=== PATIENT | male | born 1975 | race Caucasian/White ===

== ENCOUNTER 2021-12-22 19:15 | Inpatient (IN) | payer OTHER ==
[2021-12-22 19:54] LABS: #Lymphocytes 0.5 thou/uL (1.20-3.40); #Monocytes 0.8 thou/uL (0.11-0.59); #Neutrophils 15.7 thou/uL (1.40-6.50); %Basophils 0.1 % (0.0-1.0); %Eosinophils 0.1 % (0.0-10.0); %Lymphocytes 2.9 % (21.0-51.0); %Monocytes 4.8 % (0.0-10.0); %Neutrophils 92.1 % (42.0-75.0); Hemoglobin 9.7 g/dL (14.0-18.0); Mean Corpuscular HGB CONC 36.5 g/dL (32.0-36.0); Mean Corpuscular Hemoglobin 32.2 pg (27.0-31.0); Mean Corpuscular Volume 88.4 fL (78.0-98.0); Mean Platelet Volume 6.3 fL (7.4-10.4); Platelet Count 345 thou/uL (130-400); RBC Distribution Width 10.3 % (11.5-14.5)
[2021-12-22 19:55] LABS: Actual Bicarbonate (HCO3a) 32.1 mEq/L (22-28); Analyzer IN Cardio ER; Base Excess (BEa) 10.9 mEq/L (-2.0 to +3.0); CO2 Tension 29.8 mmHg (35.0-45.0); Calcium, Ionized (arterial) 0.69 mmol/L (1.12-1.30); Carboxyhemoglobin (COHb) 0.2 gm% (0.0-3.0); Hemoglobin (Hb) 9.1 g/dL (14.0-18.0); O2 Tension (PaO2), arterial 346.6 mmHg (80.0-100.0); Potassium - ABG Lab 1.33 mmol/L (3.70-5.30)
[2021-12-22 20:02] LABS: Bacteria/HPF None Seen HPF (None Seen); Bilirubin Negative (Negative); Blood, Urine 2+ (Negative); Clarity Clear (Clear); Glucose, Urine (Dipstick) Normal (Negative); Ketone, Urine Trace mg/dL (Negative); Leukocyte 500 Leu/uL (Negative); Nitrite Negative (Negative); Protein, Urine (Dipstick) 10 mg/dL (Neg-Trace); RBC/HPF 0-3 HPF (0-3); Specific Gravity, Urine 1.006 (1.002-1.036); Squamous Epithelial None Seen HPF (0-3); Urobilinogen Normal mg/dL (Less than 2); WBC/HPF 21-50 HPF (0-3)
[2021-12-22 20:07] LABS: Sperm/HPF Rare HPF (None Seen)
[2021-12-22 20:10] LABS: pH, Arterial 7.65 (7.35-7.45)
[2021-12-22 20:11] LABS: Puncture Site LBA
[2021-12-22 20:15] LABS: ALT (SGPT) 13 U/L (8-55); AST (SGOT) 46 U/L (5-34); Albumin 3.1 g/dL (3.5-5.0); Alcohol Less than 10 mg/dL (Less than 10); Alkaline Phosphatase 76 U/L (40-110); BUN (Urea Nitrogen) 12 mg/dL (8.9-20.6); Bilirubin, Total 1.5 mg/dL (0.2-1.2); Calc. Creatinine Clearance 0 mL/min (70-130); Calcium 6.9 mg/dL (7.8-10.44); Carbon Dioxide 33 mmol/L (22-29); Estimated GFR 63; Globulin 3.2 g/dL (2.4-3.5); Glucose 146 mg/dL (70-105); Protein, Total 6.3 g/dL (6.0-8.3)
[2021-12-22] MEDS ORDERED: Fentanyl CADD 100 ML IV SCH ×2 (20:15→21:00)
[2021-12-22] MEDS ORDERED: Lidocaine 1% w/Epinephrine 1:100K 20 ML VIAL ONE (20:15)
[2021-12-22 20:32] LABS: Potassium 1.4 mmol/L (3.5-5.1); Sodium 105 mmol/L (136-145)
[2021-12-22 20:33] LABS: Amphetamine Not Detected (NotDetected); Barbiturates Screen Not Detected (NotDetected); Benzodiazepine Screen Not Detected (NotDetected); Cocaine Metabolite Screen Not Detected (NotDetected); Methadone Not Detected (NotDetected); Methamphetamine Not Detected (NotDetected); Opiate Screen Not Detected (NotDetected); Oxycodone Screen Not Detected (NotDetected); Phencyclidine (PCP) Not Detected (NotDetected); THC/Cannabinoid Screen Not Detected (NotDetected); Tricyclic Screen Not Detected (NotDetected)
[2021-12-22 20:35] LABS: Chloride Less than 65 mmol/L (98-107)
[2021-12-22 20:45] LABS: Acetaminophen Less than 10.0 mcg/mL (10.0-30.0); Alcohol Less than 10 mg/dL (Less than 10); Salicylate Less than 8.0 mg/dL (15.0-30.0)
[2021-12-22] MEDS ORDERED: fentaNYL Citrate/PF 2,000 MCG in Sodium Chloride 0.9% 60 ML IV PRN (20:49)
[2021-12-22] MEDS ORDERED: HumaLOG 300 UNITS/3 ML VIAL SC PRN (20:54)
[2021-12-22] MEDS ORDERED: Ondansetron PF 4 MG/2 ML Vial IVP PRN (20:54)
[2021-12-22] MEDS ORDERED: Dextrose 5% in Water 1,000 ML IV PRN (20:54)
[2021-12-22] MEDS ORDERED: hydrALAZINE 20 MG/ML VIAL SLOW IVP PRN (20:54)
[2021-12-22] MEDS ORDERED: Promethazine HCl 25 MG/ML VIAL IM PRN (20:54)
[2021-12-22] MEDS ORDERED: Dextrose 50% Abboject 50 ML SYRINGE SLOW IVP PRN (20:54)
[2021-12-22] MEDS ORDERED: Sodium Chloride 0.9% 1,000 ML IV SCH (21:00)
[2021-12-22] MEDS ORDERED: Dexmedetomidine In 0.9 % NaCl 100 ML IVPB SCH (21:00)
[2021-12-22] MEDS ORDERED: levETIRAcetam 500 MG/5 ML VIAL ONE (21:07)
[2021-12-22 21:12] LABS: SARS-CoV-2 NAA Rapid Test Not Detected (NotDetected)
[2021-12-22] MEDS ORDERED: Calcium Chloride 1 GM/10 ML Abboject SYRINGE IVP SCH ×2 (21:15→22:15)
[2021-12-22] MEDS ORDERED: Sodium Chloride 3% 500 ML IVPB SCH (21:15)
[2021-12-22 21:37] LABS: INR-International Normal Ratio 1.3; Prothrombin Time 16.3 sec (12.0-14.7)
[2021-12-22 21:38] LABS: PTT 33.3 sec (22.9-36.1)
[2021-12-22 21:44] LABS: Hemoglobin 9.7 g/dL (14.0-18.0); Mean Corpuscular HGB CONC 35.7 g/dL (32.0-36.0); Mean Corpuscular Hemoglobin 31.5 pg (27.0-31.0); Mean Corpuscular Volume 88.1 fL (78.0-98.0); Mean Platelet Volume 6.1 fL (7.4-10.4); Platelet Count 292 thou/uL (130-400); RBC Distribution Width 10.8 % (11.5-14.5); Red Blood Cell (RBC) Count 3.07 mill/uL (4.70-6.10); White Blood Cell (WBC) Count 21.8 thou/uL (4.8-10.8)
[2021-12-22 21:53] LABS: Hemoglobin A1c 5.4 % (4.0-6.0)
[2021-12-22] MEDS ORDERED: Potassium Chloride 20 MEQ TAB PO SCH (22:00)
[2021-12-22 22:01] LABS: Band 9 % (5-11); MDiff Complete? YES; Monocytes 7 % (0-10); Neutrophil 84 % (42-75); Vacuoles SLIGHT
[2021-12-22 22:06] LABS: BUN (Urea Nitrogen) 13 mg/dL (8.9-20.6); Calc. Creatinine Clearance 0 mL/min (70-130); Calcium 6.3 mg/dL (7.8-10.44); Carbon Dioxide 33 mmol/L (22-29); Estimated GFR 71; Glucose 161 mg/dL (70-105)
[2021-12-22 22:25] LABS: Magnesium 0.8 mg/dL (1.6-2.6); Phosphorus 1.6 mg/dL (2.3-4.7); Potassium 1.3 mmol/L (3.5-5.1); Sodium 107 mmol/L (136-145)
[2021-12-22] MEDS: levETIRAcetam 500 MG/5 ML VIAL SLOW IVP SCH (22:45)
[2021-12-22] MEDS ORDERED: Magnesium Sulfate 3 GM in Sodium Chloride 0.9% 100 ML IVPB SCH (22:45)
[2021-12-22 22:58] LABS: Chloride Less than 65 mmol/L (98-107)
[2021-12-22] MEDS: Potassium Chloride 20 MEQ in Premix Bag 1 BAG IVPB SCH (23:01)
[2021-12-22] MEDS: Magnesium 2 GM/50 ML(in water) 3 GM in Premix Bag 1 BAG IVPB SCH ×2 (23:05→23:17)
[2021-12-22 23:12] LABS: Sodium 107 mmol/L (136-145)
[2021-12-23] MEDS: Potassium Chloride 20 MEQ in Premix Bag 1 BAG IVPB SCH ×8 (01:05→21:42)
[2021-12-23 02:17] LABS: Potassium 1.5 mmol/L (3.5-5.1)
[2021-12-23] MEDS ORDERED: Sodium Chloride 0.9% 1,000 ML IV SCH (04:15)
[2021-12-23 04:22] LABS: #Lymphocytes 0.7 thou/uL (1.20-3.40); #Monocytes 1.1 thou/uL (0.11-0.59); #Neutrophils 16.7 thou/uL (1.40-6.50); %Basophils 0.1 % (0.0-1.0); %Eosinophils 0.1 % (0.0-10.0); %Lymphocytes 3.9 % (21.0-51.0); %Monocytes 5.8 % (0.0-10.0); %Neutrophils 90.1 % (42.0-75.0); Hemoglobin 7.7 g/dL (14.0-18.0); Mean Corpuscular HGB CONC 36.6 g/dL (32.0-36.0); Mean Corpuscular Hemoglobin 31.9 pg (27.0-31.0); Mean Corpuscular Volume 87.2 fL (78.0-98.0); Mean Platelet Volume 6.5 fL (7.4-10.4); Platelet Count 215 thou/uL (130-400); RBC Distribution Width 10.8 % (11.5-14.5); Red Blood Cell (RBC) Count 2.41 mill/uL (4.70-6.10); White Blood Cell (WBC) Count 18.6 thou/uL (4.8-10.8)
[2021-12-23 04:27] LABS: Anion Gap 13 mmol/L (10-20); BUN (Urea Nitrogen) 13 mg/dL (8.9-20.6); Calc. Creatinine Clearance 89 mL/min (70-130); Calcium 7.5 mg/dL (7.8-10.44); Carbon Dioxide 32 mmol/L (22-29); Chloride 69 mmol/L (98-107); Estimated GFR 68; Glucose 116 mg/dL (70-105); Magnesium 1.7 mg/dL (1.6-2.6); Phosphorus 2.8 mg/dL (2.3-4.7); Potassium 1.6 mmol/L (3.5-5.1); Sodium 112 mmol/L (136-145)
[2021-12-23] MEDS ORDERED: Potassium Chloride 20 MEQ TAB PO SCH (04:30)
[2021-12-23] MEDS ORDERED: Magnesium 2 GM/50 ML(in water) 3 GM in Premix Bag 1 BAG IVPB SCH ×2 (04:45→20:15)
[2021-12-23] MEDS ORDERED: Magnesium Sulfate 3 GM in Sodium Chloride 0.9% 100 ML IVPB SCH ×2 (05:00→20:15)
[2021-12-23] MEDS ORDERED: Sodium Chloride 3% 500 ML IVPB SCH (05:15)
[2021-12-23] MEDS ORDERED: Hydrocortisone Sod Succ/PF 100 mg/2 ml Vial IVP SCH (07:45)
[2021-12-23] MEDS: levETIRAcetam 500 MG/5 ML VIAL SLOW IVP SCH ×2 (08:02→20:07)
[2021-12-23 08:09] LABS: Anion Gap 11 mmol/L (10-20); BUN (Urea Nitrogen) 12 mg/dL (8.9-20.6); Calc. Creatinine Clearance 94 mL/min (70-130); Calcium 7.3 mg/dL (7.8-10.44); Carbon Dioxide 32 mmol/L (22-29); Chloride 78 mmol/L (98-107); Estimated GFR 71; Glucose 105 mg/dL (70-105)
[2021-12-23 08:12] LABS: Sodium 119 mmol/L (136-145)
[2021-12-23 08:58] LABS: Actual Bicarbonate (HCO3a) 32.4 mEq/L (22-28); Base Excess (BEa) 8.8 mEq/L (-2.0 to +3.0); CO2 Tension 40.8 mmHg (35.0-45.0); Calcium, Ionized (arterial) 0.96 mmol/L (1.12-1.30); Carboxyhemoglobin (COHb) 0.1 gm% (0.0-3.0); Hemoglobin (Hb) 7.9 g/dL (14.0-18.0); O2 Tension (PaO2), arterial 93.8 mmHg (80.0-100.0); Potassium - ABG Lab 1.79 mmol/L (3.70-5.30); pH, Arterial 7.52 (7.35-7.45)
[2021-12-23 08:59] LABS: Puncture Site RBA
[2021-12-23] MEDS ORDERED: levETIRAcetam in NS 500 MG in Premix Bag 1 BAG IVPB SCH (09:00)
[2021-12-23] MEDS: Sodium Chloride 0.9% 1,000 ML IV SCH ×2 (09:55→16:37)
[2021-12-23] MEDS: Hydrocortisone Sod Succ/PF 100 mg/2 ml Vial IVP SCH ×2 (10:16→17:19)
[2021-12-23 11:10] LABS: Sodium 121 mmol/L (136-145)
[2021-12-23 13:35] LABS: Anion Gap 12 mmol/L (10-20); BUN (Urea Nitrogen) 12 mg/dL (8.9-20.6); Calc. Creatinine Clearance 101 mL/min (70-130); Calcium 7.6 mg/dL (7.8-10.44); Carbon Dioxide 30 mmol/L (22-29); Chloride 82 mmol/L (98-107); Estimated GFR 77; Glucose 124 mg/dL (70-105); Sodium 122 mmol/L (136-145)
[2021-12-23 13:45] LABS: Potassium 2.1 mmol/L (3.5-5.1)
[2021-12-23 15:36] LABS: Sodium 125 mmol/L (136-145)
[2021-12-23] MEDS ORDERED: Potassium Chloride 40 MEQ in Premix Bag 1 BAG IVPB SCH (16:00)
[2021-12-23 18:45] LABS: Anion Gap 12 mmol/L (10-20); BUN (Urea Nitrogen) 10 mg/dL (8.9-20.6); Calc. Creatinine Clearance 101 mL/min (70-130); Calcium 7.6 mg/dL (7.8-10.44); Carbon Dioxide 31 mmol/L (22-29); Chloride 87 mmol/L (98-107); Estimated GFR 77; Glucose 136 mg/dL (70-105); Sodium 128 mmol/L (136-145)
[2021-12-23 18:47] LABS: Potassium 2.2 mmol/L (3.5-5.1)
[2021-12-23 19:35] LABS: Phosphorus 1.9 mg/dL (2.3-4.7)
[2021-12-23] MEDS ORDERED: Potassium Phosphate 30 MMOL in Sodium Chloride 0.9% 250 ML 250 ML IVPB SCH (20:15)
[2021-12-23] MEDS ORDERED: Dextrose 5 %-0.45 % NaCl 1,000 ML IV SCH ×3 (21:15→23:15)
[2021-12-23 22:35] LABS: Magnesium 2.8 mg/dL (1.6-2.6)
[2021-12-23 22:43] LABS: Anion Gap 12 mmol/L (10-20); Calc. Creatinine Clearance 104 mL/min (70-130); Calcium 7.5 mg/dL (7.8-10.44); Carbon Dioxide 33 mmol/L (22-29); Chloride 86 mmol/L (98-107); Estimated GFR 80; Glucose 170 mg/dL (70-105); Sodium 129 mmol/L (136-145)
[2021-12-23 23:10] LABS: Potassium 1.9 mmol/L (3.5-5.1)
[2021-12-24] MEDS: Potassium Chloride 20 MEQ in Premix Bag 1 BAG IVPB SCH ×5 (00:06→08:03)
[2021-12-24 00:16] LABS: BUN (Urea Nitrogen) 10 mg/dL (8.9-20.6)
[2021-12-24] MEDS: Hydrocortisone Sod Succ/PF 100 mg/2 ml Vial IVP SCH ×3 (01:38→17:21)
[2021-12-24 02:51] LABS: Anion Gap 15 mmol/L (10-20); BUN (Urea Nitrogen) 9 mg/dL (8.9-20.6); Calc. Creatinine Clearance 107 mL/min (70-130); Calcium 7.6 mg/dL (7.8-10.44); Carbon Dioxide 30 mmol/L (22-29); Chloride 87 mmol/L (98-107); Estimated GFR 83; Glucose 168 mg/dL (70-105); Sodium 130 mmol/L (136-145)
[2021-12-24] MEDS ORDERED: Dextrose 5% in Water 1,000 ML IV SCH ×2 (03:15→03:16)
[2021-12-24] MEDS ORDERED: Potassium Chloride 20 MEQ in Premix Bag 1 BAG IVPB SCH (05:00)
[2021-12-24] MEDS ORDERED: Lactated Ringer's 1,000 ML IV SCH (05:00)
[2021-12-24] MEDS: Sodium Chloride 0.9% 1,000 ML IV SCH (05:52)
[2021-12-24 06:30] LABS: Anion Gap 12 mmol/L (10-20); BUN (Urea Nitrogen) 9 mg/dL (8.9-20.6); Calc. Creatinine Clearance 112 mL/min (70-130); Calcium 7.4 mg/dL (7.8-10.44); Carbon Dioxide 32 mmol/L (22-29); Chloride 87 mmol/L (98-107); Estimated GFR 93; Glucose 147 mg/dL (70-105); Magnesium 1.9 mg/dL (1.6-2.6); Phosphorus 2.1 mg/dL (2.3-4.7); Sodium 129 mmol/L (136-145)
[2021-12-24 06:34] LABS: Hemoglobin 8.4 g/dL (14.0-18.0); Mean Corpuscular HGB CONC 35.1 g/dL (32.0-36.0); Mean Corpuscular Volume 88.2 fL (78.0-98.0); Mean Platelet Volume 6.2 fL (7.4-10.4); Platelet Count 209 thou/uL (130-400); RBC Distribution Width 11.3 % (11.5-14.5); Red Blood Cell (RBC) Count 2.72 mill/uL (4.70-6.10); White Blood Cell (WBC) Count 20.2 thou/uL (4.8-10.8)
[2021-12-24 06:48] LABS: Potassium 2.2 mmol/L (3.5-5.1)
[2021-12-24] MEDS ORDERED: D5 LR w/20 mEq KCL 1,000 ML IV SCH (07:15)
[2021-12-24] MEDS ORDERED: Potassium Phosphate 30 MMOL in Sodium Chloride 0.9% 250 ML 250 ML IVPB SCH (07:30)
[2021-12-24 08:11] LABS: Band 16 % (5-11); Lymphocytes 2 % (21-51); MDiff Complete? YES; Neutrophil 81 % (42-75); Platelet Morphology Comment Appears Adequate; Polychromasia SLIGHT = 2-3 cells (100X) (0-2/hpf); Reactive Lymphocytes 1 % (0-10)
[2021-12-24] MEDS ORDERED: Sodium Chloride 0.9% (PF) 10 ML VIAL FS PRN (08:15)
[2021-12-24] MEDS: Acetaminophen 500 MG TAB PO SCH ×3 (08:21→20:00)
[2021-12-24] MEDS: Ascorbic Acid 500 mg Chewable Tablet PO SCH ×2 (08:28→20:00)
[2021-12-24] MEDS: Pantoprazole 40 MG VIAL IVP SCH (08:28)
[2021-12-24] MEDS: Enoxaparin Sodium 40 MG/0.4 ML SYRINGE SC SCH (08:29)
[2021-12-24] MEDS: Ferrous Sulfate 325 MG TAB PO SCH ×2 (08:29→17:20)
[2021-12-24] MEDS: levETIRAcetam 500 MG/5 ML VIAL SLOW IVP SCH ×2 (08:31→20:01)
[2021-12-24] MEDS ORDERED: SODIUM CHLORIDE 0.9% IVPB SCH (10:00)
[2021-12-24] MEDS ORDERED: POTASSIUM CHLORIDE IVPB SCH (10:00)
[2021-12-24 11:39] LABS: Anion Gap 15 mmol/L (10-20); BUN (Urea Nitrogen) 7 mg/dL (8.9-20.6); Calc. Creatinine Clearance 116 mL/min (70-130); Calcium 7.3 mg/dL (7.8-10.44); Carbon Dioxide 30 mmol/L (22-29); Chloride 86 mmol/L (98-107); Estimated GFR 96; Glucose 138 mg/dL (70-105); Magnesium 1.7 mg/dL (1.6-2.6); Potassium 2.4 mmol/L (3.5-5.1); Sodium 129 mmol/L (136-145)
[2021-12-24] MEDS ORDERED: Magnesium 2 GM/50 ML(in water) 3 GM in Premix Bag 1 BAG IVPB SCH (14:00)
[2021-12-24] MEDS ORDERED: Magnesium Sulfate 3 GM in Sodium Chloride 0.9% 100 ML IVPB SCH (14:15)
[2021-12-24] MEDS: Potassium Chloride 20 MEQ in Lactated Ringer's 1,000 ML IV SCH ×2 (15:13→22:56)
[2021-12-24 15:30] LABS: Anion Gap 15 mmol/L (10-20); BUN (Urea Nitrogen) 6 mg/dL (8.9-20.6); Calc. Creatinine Clearance 112 mL/min (70-130); Calcium 6.9 mg/dL (7.8-10.44); Carbon Dioxide 29 mmol/L (22-29); Chloride 89 mmol/L (98-107); Estimated GFR 93; Glucose 165 mg/dL (70-105); Sodium 130 mmol/L (136-145)
[2021-12-24 15:42] LABS: Potassium 2.8 mmol/L (3.5-5.1)
[2021-12-24] MEDS: Potassium Chloride 40 MEQ in Premix Bag 1 BAG IVPB SCH ×3 (17:20→22:09)
[2021-12-24 21:12] LABS: Anion Gap 15 mmol/L (10-20); BUN (Urea Nitrogen) 6 mg/dL (8.9-20.6); Calc. Creatinine Clearance 122 mL/min (70-130); Calcium 6.7 mg/dL (7.8-10.44); Carbon Dioxide 29 mmol/L (22-29); Chloride 88 mmol/L (98-107); Estimated GFR 103; Glucose 158 mg/dL (70-105); Magnesium 1.9 mg/dL (1.6-2.6); Phosphorus 2.3 mg/dL (2.3-4.7); Sodium 129 mmol/L (136-145)
[2021-12-24] MEDS: Calcium Chloride 13.6 MEQ in Sodium Chloride 0.9% 100 ML IVPB SCH ×2 (22:07→22:57)
[2021-12-25] MEDS: Acetaminophen 500 MG TAB PO SCH ×4 (00:21→21:10)
[2021-12-25 02:13] LABS: #Lymphocytes 0.7 thou/uL (1.20-3.40); #Monocytes 0.6 thou/uL (0.11-0.59); %Basophils 0.1 % (0.0-1.0); %Eosinophils 0.1 % (0.0-10.0); %Lymphocytes 3.9 % (21.0-51.0); %Monocytes 3.4 % (0.0-10.0); %Neutrophils 92.5 % (42.0-75.0); Hemoglobin 7.2 g/dL (14.0-18.0); Mean Corpuscular HGB CONC 35.4 g/dL (32.0-36.0); Mean Corpuscular Hemoglobin 32.1 pg (27.0-31.0); Mean Corpuscular Volume 90.7 fL (78.0-98.0); Mean Platelet Volume 6.4 fL (7.4-10.4); Platelet Count 198 thou/uL (130-400); RBC Distribution Width 11.5 % (11.5-14.5); Red Blood Cell (RBC) Count 2.25 mill/uL (4.70-6.10); White Blood Cell (WBC) Count 17.2 thou/uL (4.8-10.8)
[2021-12-25] MEDS ORDERED: Potassium Chloride 30 MEQ in Sodium Chloride 0.9% 1,000 ML IV SCH (02:15)
[2021-12-25] MEDS: Hydrocortisone Sod Succ/PF 100 mg/2 ml Vial IVP SCH ×3 (02:29→17:46)
[2021-12-25] MEDS: Potassium Chloride 40 MEQ in Premix Bag 1 BAG IVPB SCH (02:29)
[2021-12-25 02:53] LABS: Anion Gap 11 mmol/L (10-20); BUN (Urea Nitrogen) 6 mg/dL (8.9-20.6); Calc. Creatinine Clearance 127 mL/min (70-130); Calcium 7.9 mg/dL (7.8-10.44); Carbon Dioxide 30 mmol/L (22-29); Chloride 89 mmol/L (98-107); Estimated GFR 107; Glucose 119 mg/dL (70-105); Magnesium 1.5 mg/dL (1.6-2.6); Phosphorus 2.6 mg/dL (2.3-4.7); Potassium 3.4 mmol/L (3.5-5.1); Sodium 127 mmol/L (136-145)
[2021-12-25] MEDS ORDERED: Potassium Chloride 20 MEQ TAB PO SCH (06:30)
[2021-12-25 06:48] LABS: Anion Gap 13 mmol/L (10-20); BUN (Urea Nitrogen) 5 mg/dL (8.9-20.6); Calc. Creatinine Clearance 122 mL/min (70-130); Calcium 7.6 mg/dL (7.8-10.44); Carbon Dioxide 30 mmol/L (22-29); Chloride 90 mmol/L (98-107); Estimated GFR 99; Glucose 125 mg/dL (70-105); Potassium 3.6 mmol/L (3.5-5.1); Sodium 129 mmol/L (136-145)
[2021-12-25] MEDS ORDERED: Magnesium Sulfate In Water 4 GM in Premix Bag 1 BAG IVPB SCH (07:00)
[2021-12-25] MEDS: Sodium Chloride 1 GM TAB PO SCH ×3 (07:03→17:46)
[2021-12-25] MEDS: Sodium Chloride 0.9% 1,000 ML IV SCH ×2 (07:03→17:21)
[2021-12-25] MEDS: Potassium Chloride 20 MEQ in Premix Bag 1 BAG IVPB SCH ×2 (09:22→11:55)
[2021-12-25] MEDS: Ferrous Sulfate 325 MG TAB PO SCH ×2 (09:23→17:46)
[2021-12-25] MEDS: Enoxaparin Sodium 40 MG/0.4 ML SYRINGE SC SCH (09:23)
[2021-12-25] MEDS: levETIRAcetam 500 MG TAB PO SCH ×2 (09:23→21:10)
[2021-12-25] MEDS: Pantoprazole 40 MG VIAL IVP SCH (09:23)
[2021-12-25] MEDS: Ascorbic Acid 500 mg Chewable Tablet PO SCH ×2 (09:23→21:10)
[2021-12-25 17:43] LABS: #Lymphocytes 0.9 thou/uL (1.20-3.40); #Monocytes 0.8 thou/uL (0.11-0.59); #Neutrophils 15.5 thou/uL (1.40-6.50); %Eosinophils 0.2 % (0.0-10.0); %Monocytes 4.4 % (0.0-10.0); %Neutrophils 90.4 % (42.0-75.0); Hemoglobin 7.6 g/dL (14.0-18.0); Mean Corpuscular HGB CONC 34.3 g/dL (32.0-36.0); Mean Corpuscular Hemoglobin 31.9 pg (27.0-31.0); Mean Corpuscular Volume 93.1 fL (78.0-98.0); Mean Platelet Volume 6.4 fL (7.4-10.4); Platelet Count 229 thou/uL (130-400); RBC Distribution Width 11.6 % (11.5-14.5); Red Blood Cell (RBC) Count 2.39 mill/uL (4.70-6.10); White Blood Cell (WBC) Count 17.1 thou/uL (4.8-10.8)
[2021-12-25 18:02] LABS: Anion Gap 13 mmol/L (10-20); BUN (Urea Nitrogen) 7 mg/dL (8.9-20.6); Calc. Creatinine Clearance 122 mL/min (70-130); Calcium 7.3 mg/dL (7.8-10.44); Carbon Dioxide 30 mmol/L (22-29); Chloride 91 mmol/L (98-107); Estimated GFR 99; Glucose 120 mg/dL (70-105); Magnesium 1.8 mg/dL (1.6-2.6); Phosphorus 2.2 mg/dL (2.3-4.7); Potassium 3.6 mmol/L (3.5-5.1); Sodium 130 mmol/L (136-145)
[2021-12-25] MEDS ORDERED: Potassium Phosphate 30 MMOL in Sodium Chloride 0.9% 250 ML 250 ML IVPB SCH (20:30)
[2021-12-25] MEDS ORDERED: Magnesium Sulfate 3 GM in Sodium Chloride 0.9% 100 ML IVPB SCH (20:30)
[2021-12-25] MEDS: Metoprolol Tartrate 25 MG TAB PO SCH (21:38)
[2021-12-26] MEDS: Acetaminophen 500 MG TAB PO SCH ×4 (00:29→20:54)
[2021-12-26] MEDS: Sodium Chloride 1 GM TAB PO SCH ×4 (00:29→16:51)
[2021-12-26 01:18] LABS: Sodium 131 mmol/L (136-145)
[2021-12-26 04:44] LABS: #Eosinphils 0.1 thou/uL (0.0-0.7); #Lymphocytes 1.5 thou/uL (1.20-3.40); #Monocytes 0.8 thou/uL (0.11-0.59); #Neutrophils 10.7 thou/uL (1.40-6.50); %Eosinophils 0.7 % (0.0-10.0); %Lymphocytes 11.5 % (21.0-51.0); %Monocytes 6.3 % (0.0-10.0); %Neutrophils 81.4 % (42.0-75.0); Hemoglobin 7.1 g/dL (14.0-18.0); Mean Corpuscular HGB CONC 34.9 g/dL (32.0-36.0); Mean Corpuscular Hemoglobin 32.1 pg (27.0-31.0); Mean Platelet Volume 6.5 fL (7.4-10.4); Platelet Count 248 thou/uL (130-400); RBC Distribution Width 11.4 % (11.5-14.5); Red Blood Cell (RBC) Count 2.22 mill/uL (4.70-6.10); White Blood Cell (WBC) Count 13.2 thou/uL (4.8-10.8)
[2021-12-26 05:18] LABS: Anion Gap 12 mmol/L (10-20); BUN (Urea Nitrogen) 8 mg/dL (8.9-20.6); Calc. Creatinine Clearance 156 mL/min (70-130); Calcium 6.8 mg/dL (7.8-10.44); Carbon Dioxide 33 mmol/L (22-29); Chloride 90 mmol/L (98-107); Estimated GFR 113; Glucose 90 mg/dL (70-105); Magnesium 1.7 mg/dL (1.6-2.6); Potassium 2.9 mmol/L (3.5-5.1); Sodium 132 mmol/L (136-145)
[2021-12-26] MEDS: Potassium Chloride 20 MEQ in Premix Bag 1 BAG IVPB SCH ×6 (06:12→22:20)
[2021-12-26] MEDS: Ferrous Sulfate 325 MG TAB PO SCH ×2 (08:10→16:50)
[2021-12-26] MEDS: Pantoprazole 40 MG VIAL IVP SCH (08:10)
[2021-12-26] MEDS: levETIRAcetam 500 MG TAB PO SCH ×2 (08:11→20:54)
[2021-12-26] MEDS: Metoprolol Tartrate 25 MG TAB PO SCH (08:11)
[2021-12-26] MEDS: Ascorbic Acid 500 mg Chewable Tablet PO SCH ×2 (08:11→20:54)
[2021-12-26] MEDS: Enoxaparin Sodium 40 MG/0.4 ML SYRINGE SC SCH (08:11)
[2021-12-26] MEDS: Atorvastatin Calcium 40 MG TAB PO SCH (08:11)
[2021-12-26] MEDS ORDERED: Potassium Chloride 20 MEQ TAB PO SCH ×2 (11:15→21:45)
[2021-12-26 12:11] LABS: Anion Gap 13 mmol/L (10-20); BUN (Urea Nitrogen) 9 mg/dL (8.9-20.6); Calc. Creatinine Clearance 153 mL/min (70-130); Calcium 6.6 mg/dL (7.8-10.44); Carbon Dioxide 32 mmol/L (22-29); Chloride 89 mmol/L (98-107); Estimated GFR 113; Glucose 89 mg/dL (70-105); Magnesium 1.3 mg/dL (1.6-2.6); Phosphorus 2.7 mg/dL (2.3-4.7); Potassium 3.5 mmol/L (3.5-5.1); Sodium 130 mmol/L (136-145)
[2021-12-26] MEDS ORDERED: Potassium Chloride 40 MEQ in Premix Bag 1 BAG IVPB SCH (12:45)
[2021-12-26] MEDS ORDERED: Magnesium Sulfate In Water 4 GM in Premix Bag 1 BAG IVPB SCH (13:00)
[2021-12-26 15:26] VITALS: BP 117/74
[2021-12-26] MEDS: Desmopressin 0.2 mg Tablet PO SCH (20:53)
[2021-12-26 20:56] LABS: Anion Gap 13 mmol/L (10-20); BUN (Urea Nitrogen) 9 mg/dL (8.9-20.6); Calc. Creatinine Clearance 151 mL/min (70-130); Calcium 6.6 mg/dL (7.8-10.44); Carbon Dioxide 31 mmol/L (22-29); Chloride 89 mmol/L (98-107); Estimated GFR 112; Glucose 102 mg/dL (70-105); Magnesium 1.9 mg/dL (1.6-2.6); Phosphorus 2.3 mg/dL (2.3-4.7); Potassium 3.3 mmol/L (3.5-5.1); Sodium 130 mmol/L (136-145)
[2021-12-26] MEDS: Senokot S 8.6-50 MG TAB PO SCH (20:59)
[2021-12-27] MEDS: Acetaminophen 500 MG TAB PO SCH ×4 (00:22→18:13)
[2021-12-27] MEDS: Sodium Chloride 1 GM TAB PO SCH ×4 (00:22→18:13)
[2021-12-27] MEDS: Potassium Chloride 20 MEQ in Premix Bag 1 BAG IVPB SCH ×3 (00:23→04:20)
[2021-12-27 07:02] LABS: Anion Gap 14 mmol/L (10-20); BUN (Urea Nitrogen) 8 mg/dL (8.9-20.6); Calc. Creatinine Clearance 149 mL/min (70-130); Calcium 6.8 mg/dL (7.8-10.44); Carbon Dioxide 30 mmol/L (22-29); Chloride 88 mmol/L (98-107); Estimated GFR 113; Glucose 86 mg/dL (70-105); Magnesium 1.2 mg/dL (1.6-2.6); Phosphorus 2.5 mg/dL (2.3-4.7); Potassium 4.5 mmol/L (3.5-5.1); Sodium 127 mmol/L (136-145)
[2021-12-27] MEDS ORDERED: Magnesium 2 GM/50 ML(in water) 4 GM in Premix Bag 1 BAG IVPB SCH (07:15)
[2021-12-27] MEDS ORDERED: Magnesium Sulfate In Water 4 GM in Premix Bag 1 BAG IVPB SCH ×2 (08:00→23:00)
[2021-12-27] MEDS ORDERED: Sodium Chloride 0.9% 1,000 ML IV SCH ×3 (08:00→12:49)
[2021-12-27] MEDS ORDERED: Potassium Chloride 20 MEQ TAB PO SCH ×2 (08:00→12:45)
[2021-12-27] MEDS: Ascorbic Acid 500 mg Chewable Tablet PO SCH ×2 (08:18→20:25)
[2021-12-27] MEDS: Atorvastatin Calcium 40 MG TAB PO SCH (08:18)
[2021-12-27] MEDS: Ferrous Sulfate 325 MG TAB PO SCH ×2 (08:18→18:13)
[2021-12-27] MEDS: Enoxaparin Sodium 40 MG/0.4 ML SYRINGE SC SCH (08:19)
[2021-12-27] MEDS: Senokot S 8.6-50 MG TAB PO SCH ×2 (08:21→20:26)
[2021-12-27] MEDS: Polyethylene Glycol 3350 17 GM Packet PO SCH (08:21)
[2021-12-27] MEDS: Desmopressin 0.2 mg Tablet PO SCH (09:18)
[2021-12-27] MEDS ORDERED: Sodium Chloride 0.9% 500 ML IV SCH (09:45)
[2021-12-27 12:08] LABS: Anion Gap 15 mmol/L (10-20); BUN (Urea Nitrogen) 9 mg/dL (8.9-20.6); Calc. Creatinine Clearance 164 mL/min (70-130); Calcium 6.5 mg/dL (7.8-10.44); Carbon Dioxide 23 mmol/L (22-29); Chloride 91 mmol/L (98-107); Estimated GFR 116; Glucose 95 mg/dL (70-105); Magnesium 1.9 mg/dL (1.6-2.6); Phosphorus 2.4 mg/dL (2.3-4.7); Potassium 3.9 mmol/L (3.5-5.1); Sodium 125 mmol/L (136-145)
[2021-12-27] MEDS ORDERED: Furosemide 20 MG/2 ML VIAL SLOW IVP SCH (13:30)
[2021-12-27 22:42] LABS: Anion Gap 14 mmol/L (10-20); BUN (Urea Nitrogen) 12 mg/dL (8.9-20.6); Calc. Creatinine Clearance 153 mL/min (70-130); Calcium 6.7 mg/dL (7.8-10.44); Carbon Dioxide 28 mmol/L (22-29); Chloride 86 mmol/L (98-107); Estimated GFR 114; Glucose 115 mg/dL (70-105); Magnesium 1.2 mg/dL (1.6-2.6); Phosphorus 3.3 mg/dL (2.3-4.7); Potassium 3.6 mmol/L (3.5-5.1); Sodium 124 mmol/L (136-145)
[2021-12-27] MEDS: Potassium Chloride 10 MEQ in Premix Bag 1 BAG IVPB SCH (23:09)
[2021-12-28] MEDS: Potassium Chloride 10 MEQ in Premix Bag 1 BAG IVPB SCH ×3 (00:08→02:12)
[2021-12-28] MEDS: Acetaminophen 500 MG TAB PO SCH ×5 (00:10→23:44)
[2021-12-28] MEDS: Sodium Chloride 1 GM TAB PO SCH ×5 (00:10→23:44)
[2021-12-28 06:00] LABS: #Eosinphils 0.7 thou/uL (0.0-0.7); #Lymphocytes 1.5 thou/uL (1.20-3.40); #Monocytes 1.2 thou/uL (0.11-0.59); #Neutrophils 11.2 thou/uL (1.40-6.50); %Basophils 0.3 % (0.0-1.0); %Eosinophils 4.7 % (0.0-10.0); %Lymphocytes 10.2 % (21.0-51.0); %Monocytes 8.4 % (0.0-10.0); %Neutrophils 76.5 % (42.0-75.0); Hemoglobin 9.5 g/dL (14.0-18.0); Mean Corpuscular HGB CONC 33.6 g/dL (32.0-36.0); Mean Corpuscular Hemoglobin 31.1 pg (27.0-31.0); Mean Corpuscular Volume 92.8 fL (78.0-98.0); Mean Platelet Volume 5.8 fL (7.4-10.4); Platelet Count 375 thou/uL (130-400); RBC Distribution Width 11.6 % (11.5-14.5); Red Blood Cell (RBC) Count 3.03 mill/uL (4.70-6.10); White Blood Cell (WBC) Count 14.7 thou/uL (4.8-10.8)
[2021-12-28 06:28] LABS: BUN (Urea Nitrogen) 9 mg/dL (8.9-20.6); Calc. Creatinine Clearance 147 mL/min (70-130); Calcium 6.9 mg/dL (7.8-10.44); Carbon Dioxide 27 mmol/L (22-29); Chloride 89 mmol/L (98-107); Estimated GFR 113; Glucose 92 mg/dL (70-105); Magnesium 2.1 mg/dL (1.6-2.6); Phosphorus 3.1 mg/dL (2.3-4.7); Potassium 4.3 mmol/L (3.5-5.1); Sodium 125 mmol/L (136-145)
[2021-12-28 06:32] LABS: Anion Gap 15 mmol/L (10-20)
[2021-12-28] MEDS: Ferrous Sulfate 325 MG TAB PO SCH ×2 (09:00→18:07)
[2021-12-28] MEDS: Atorvastatin Calcium 40 MG TAB PO SCH (09:00)
[2021-12-28] MEDS: Ascorbic Acid 500 mg Chewable Tablet PO SCH ×2 (09:00→20:25)
[2021-12-28] MEDS: Enoxaparin Sodium 40 MG/0.4 ML SYRINGE SC SCH (09:00)
[2021-12-28] MEDS: Senokot S 8.6-50 MG TAB PO SCH ×2 (09:03→20:26)
[2021-12-28] MEDS: Polyethylene Glycol 3350 17 GM Packet PO SCH (09:03)
[2021-12-28] MEDS: Dexamethasone 1 MG TAB PO SCH ×2 (18:07→20:25)
[2021-12-28 20:58] LABS: Anion Gap 14 mmol/L (10-20); BUN (Urea Nitrogen) 13 mg/dL (8.9-20.6); Calc. Creatinine Clearance 119 mL/min (70-130); Calcium 7.7 mg/dL (7.8-10.44); Carbon Dioxide 28 mmol/L (22-29); Chloride 91 mmol/L (98-107); Estimated GFR 103; Glucose 122 mg/dL (70-105); Magnesium 1.5 mg/dL (1.6-2.6); Phosphorus 4.2 mg/dL (2.3-4.7); Potassium 4.3 mmol/L (3.5-5.1); Sodium 129 mmol/L (136-145)
[2021-12-28] MEDS ORDERED: Magnesium Sulfate In Water 4 GM in Premix Bag 1 BAG IVPB SCH (21:15)
[2021-12-29 04:19] LABS: Anion Gap 16 mmol/L (10-20); BUN (Urea Nitrogen) 12 mg/dL (8.9-20.6); Calc. Creatinine Clearance 127 mL/min (70-130); Calcium 8.1 mg/dL (7.8-10.44); Carbon Dioxide 25 mmol/L (22-29); Chloride 95 mmol/L (98-107); Estimated GFR 108; Glucose 134 mg/dL (70-105); Magnesium 2.6 mg/dL (1.6-2.6); Phosphorus 3.2 mg/dL (2.3-4.7); Potassium 5.2 mmol/L (3.5-5.1); Sodium 131 mmol/L (136-145)
[2021-12-29] MEDS: Sodium Chloride 1 GM TAB PO SCH (06:10)
[2021-12-29] MEDS: Acetaminophen 500 MG TAB PO SCH ×3 (06:10→17:55)
[2021-12-29] MEDS ORDERED: Dextrose 50% Abboject 50 ML SYRINGE SLOW IVP SCH (06:15)
[2021-12-29] MEDS ORDERED: Insulin Regular 300 UNITS/3 ML VIAL SC SCH (06:15)
[2021-12-29] MEDS ORDERED: Calcium Chloride 1 GM/10 ML Abboject SYRINGE IVP SCH (06:15)
[2021-12-29] MEDS: Ascorbic Acid 500 mg Chewable Tablet PO SCH ×2 (09:06→20:27)
[2021-12-29] MEDS: Dexamethasone 1 MG TAB PO SCH ×4 (09:07→20:27)
[2021-12-29] MEDS: Atorvastatin Calcium 40 MG TAB PO SCH (09:07)
[2021-12-29] MEDS: Ferrous Sulfate 325 MG TAB PO SCH ×3 (09:08→20:27)
[2021-12-29] MEDS: Polyethylene Glycol 3350 17 GM Packet PO SCH (09:08)
[2021-12-29] MEDS: Enoxaparin Sodium 40 MG/0.4 ML SYRINGE SC SCH (09:08)
[2021-12-29] MEDS: Senokot S 8.6-50 MG TAB PO SCH ×2 (09:09→20:27)
[2021-12-29 11:41] VITALS: BMI 26.2
[2021-12-29 12:24] LABS: Anion Gap 17 mmol/L (10-20); BUN (Urea Nitrogen) 14 mg/dL (8.9-20.6); Calc. Creatinine Clearance 115 mL/min (70-130); Calcium 9.7 mg/dL (7.8-10.44); Carbon Dioxide 27 mmol/L (22-29); Chloride 95 mmol/L (98-107); Estimated GFR 101; Glucose 114 mg/dL (70-105); Potassium 4.8 mmol/L (3.5-5.1); Sodium 134 mmol/L (136-145)
[2021-12-30] MEDS: Acetaminophen 500 MG TAB PO SCH ×3 (00:31→12:43)
[2021-12-30 04:24] LABS: #Eosinphils 0.1 thou/uL (0.0-0.7); #Lymphocytes 0.7 thou/uL (1.20-3.40); #Monocytes 0.6 thou/uL (0.11-0.59); #Neutrophils 16.4 thou/uL (1.40-6.50); %Basophils 0.1 % (0.0-1.0); %Eosinophils 0.4 % (0.0-10.0); %Lymphocytes 4.2 % (21.0-51.0); %Monocytes 3.4 % (0.0-10.0); %Neutrophils 91.9 % (42.0-75.0); Hemoglobin 9.5 g/dL (14.0-18.0); Mean Corpuscular HGB CONC 33.3 g/dL (32.0-36.0); Mean Corpuscular Hemoglobin 31.6 pg (27.0-31.0); Mean Corpuscular Volume 94.7 fL (78.0-98.0); Mean Platelet Volume 5.8 fL (7.4-10.4); Platelet Count 472 thou/uL (130-400); RBC Distribution Width 12.2 % (11.5-14.5); White Blood Cell (WBC) Count 17.8 thou/uL (4.8-10.8)
[2021-12-30 04:42] LABS: Anion Gap 17 mmol/L (10-20); BUN (Urea Nitrogen) 19 mg/dL (8.9-20.6); Calc. Creatinine Clearance 126 mL/min (70-130); Calcium 9.5 mg/dL (7.8-10.44); Carbon Dioxide 26 mmol/L (22-29); Chloride 94 mmol/L (98-107); Estimated GFR 108; Glucose 130 mg/dL (70-105); Magnesium 1.5 mg/dL (1.6-2.6); Phosphorus 4.2 mg/dL (2.3-4.7); Potassium 5.8 mmol/L (3.5-5.1); Sodium 131 mmol/L (136-145)
[2021-12-30 06:27] LABS: Potassium 5.1 mmol/L (3.5-5.1)
[2021-12-30] MEDS ORDERED: Magnesium Sulfate 3 GM in Sodium Chloride 0.9% 100 ML IVPB SCH (07:30)
[2021-12-30] MEDS: Enoxaparin Sodium 40 MG/0.4 ML SYRINGE SC SCH (08:59)
[2021-12-30] MEDS: Ferrous Sulfate 325 MG TAB PO SCH (08:59)
[2021-12-30] MEDS: Atorvastatin Calcium 40 MG TAB PO SCH (08:59)
[2021-12-30] MEDS: Dexamethasone 1 MG TAB PO SCH ×3 (08:59→16:47)
[2021-12-30] MEDS: Ascorbic Acid 500 mg Chewable Tablet PO SCH (08:59)
[2021-12-30] MEDS: Polyethylene Glycol 3350 17 GM Packet PO SCH (09:00)
[2021-12-30] MEDS: Senokot S 8.6-50 MG TAB PO SCH (09:00)
[2021-12-30] MEDS ORDERED: Magnevist 469MG/ML 20 ML VIAL ONE (09:52)
[2021-12-30 15:45] VITALS: TEMP 98.8
== END 2021-12-30 17:00 | DRG 100 ==
LOC: ERS 19:15 → CCU 20:04 → UNDOADMIN 20:04 → EEVIPCON 20:04 → IMCU/EMU 12-25 00:21
PROVIDERS: ADMIT Surgery; ATTEND Surgery
PROC: 5A1935Z Respiratory Ventilation, Less than 24 Consecutive Hours (ICD-10-PCS; principal; 2021-12-22)
PROC: 05H633Z Insertion of Infusion Device into Left Subclavian Vein, Percutaneous Approach (ICD-10-PCS; 2021-12-22)
PROC: 30243N1 Transfusion of Nonautologous Red Blood Cells into Central Vein, Percutaneous Approach (ICD-10-PCS; 2021-12-22)
PROC: 0HQ0XZZ Repair Scalp Skin, External Approach (ICD-10-PCS; 2021-12-22)
DX: G40.909 Epilepsy, unspecified, not intractable, without status epilepticus (principal); T79.4XXA Traumatic shock, initial encounter; J96.01 Acute respiratory failure with hypoxia; R40.2312 Coma scale, best motor response, none, at arrival to emergency department; R40.2112 Coma scale, eyes open, never, at arrival to emergency department; E87.1 Hypo-osmolality and hyponatremia; N17.9 Acute kidney failure, unspecified; E23.2 Diabetes insipidus; E27.40 Unspecified adrenocortical insufficiency; S01.01XA Laceration without foreign body of scalp, initial encounter; I10 Essential (primary) hypertension; I25.10 Atherosclerotic heart disease of native coronary artery without angina pectoris; E87.6 Hypokalemia; E87.8 Other disorders of electrolyte and fluid balance, not elsewhere classified; E83.42 Hypomagnesemia; V84.9XXA Unspecified occupant of special agricultural vehicle injured in nontraffic accident, initial encounter
CPT/HCPCS: 12001; 36415; 36430; 36556; 36600; 51702; 70450; 70553; 71045; 72125; 80048; 80053; 80306; 80307; 81003; 81015; 82040; 82140; 82533; 82805; 83036; 83735; 83930; 84100; 84146; 84295; 84443; 85025; 85610; 85730; 86850; 86900; 86901; 93005; 94002; 94003; 96361; 96365; 96375; A9579; C9113; G0390; J0360; J1650; J1720; J1940; J1953; J2597; J3010; J3475; J3480; J3490; J7030; J7042; J7050; J7070; J7120; J7131; J8540; P9016; P9045; U0002; U0003; U0005